=== PATIENT | male | born 1990 | race Hispanic/Latino ===

== ENCOUNTER 2019-04-04 09:59 | Emergency (ER) | payer SELFPAY ==
[2019-04-04] MEDS ORDERED: Dexamethasone 10 MG/ML VIAL ONE (11:30)
== END 2019-04-04 11:35 | disposition home or self-care (01) ==
LOC: ERS 09:59
DX: J02.0 Streptococcal pharyngitis (principal)
CPT/HCPCS: 87430; 99283; J1100